=== PATIENT | female | born 1945 | race Caucasian/White ===

== ENCOUNTER 2018-08-30 17:50 | Emergency (ER) | payer OTHER ==
[~2018-08-30] VITALS: Ht 160 cm; Wt 61.7 kg
[2018-08-30] MEDS ORDERED: PLAVIX75 MG PO (18:03)
[2018-08-30] MEDS ORDERED: COREG CR10 MG PO (18:04)
[2018-08-30] MEDS ORDERED: AVAPRO150 MG PO (18:04)
[2018-08-30] MEDS ORDERED: PROTONIX20 MG PO (18:04)
== END 2018-08-30 20:20 | disposition home or self-care (01) ==
LOC: ER 17:50
DX: S60.473A Other superficial bite of left middle finger, initial encounter (principal); W54.0XXA Bitten by dog, initial encounter; Y93.89 Activity, other specified; Y92.488 Other paved roadways as the place of occurrence of the external cause; Y99.8 Other external cause status

== ENCOUNTER 2021-06-30 11:11 | Outpatient (CLI) | payer OTHER ==
[~2021-06-30 11:11] MED LIST: AVAPRO150 MG PO; COREG CR10 MG PO; PLAVIX75 MG PO; PROTONIX20 MG PO
== END 2021-06-30 11:20 | disposition home or self-care (01) ==
LOC: RAD 11:11
PROVIDERS: ATTEND Urology
DX: N39.43 Post-void dribbling (principal)

== ENCOUNTER 2021-12-08 09:27 | Outpatient (CLI) | payer OTHER | END 2021-12-08 09:28 | disposition home or self-care (01) | LOC: RAD 09:27 | PROVIDERS: ATTEND Physical Medicine & Rehabilitation | DX: M25.511 Pain in right shoulder (principal); M25.551 Pain in right hip; M25.561 Pain in right knee ==

== ENCOUNTER 2022-06-25 15:44 | Outpatient (CLI) | payer OTHER | END 2022-06-25 15:53 | disposition home or self-care (01) | LOC: RAD 15:44 | PROVIDERS: ATTEND Podiatrist Foot Surgery | DX: M54.50 Low back pain, unspecified (principal) ==

== ENCOUNTER 2024-03-05 09:55 | Emergency (ER) | payer OTHER ==
[~2024-03-05] VITALS: Ht 160 cm; Wt 59.0 kg
[2024-03-05] MEDS ORDERED: 0.9 % SODIUM CHLORIDE 1,000 ML IV SCH (10:30)
[2024-03-05 11:05] LABS: HEMATOCRIT 38.9 % (36.0-45.00); HEMOGLOBIN 13.2 g/dL (12.0-15.00); MEAN CELL VOLUME 90.2 fL (80.00-100.00); MEAN CORPUSCULAR HEMOGLOBIN 30.5 pg (27.00-32.0); MEAN CORPUSCULAR HGB CONC 33.9 g/dl (32.0-36.0); PLATELET COUNT 227 K/uL (150-450); RED BLOOD COUNT 4.31 M/uL (4.00-6.00); RED CELL DISTRIBUTION WIDTH 13.8 % (11.5-14.5)
[2024-03-05 11:36] LABS: CALCIUM 9.4 mg/dL (8.5-10.1); CREATININE SERUM 0.8 mg/dL (0.55-1.02); GFR 69.01; POTASSIUM 3.73 mEq/L (3.5-5.1)
[2024-03-05 12:31] LABS: PH,URINE 6.5 (5.0-8.0); URINE APPEARANCE Clear; URINE BILIRRUBIN Negative (NEGATIVE); URINE BLOOD Negative; URINE COLOR Yellow; URINE GLUCOSE Negative (NEGATIVE); URINE KETONE Negative (NEGATIVE); URINE LEUKOCYTE Negative; URINE NITRATE Negative; URINE PROTEIN Negative (NEGATIVE); URINE UROBILINOGEN 0.2 E.U./dl
[2024-03-05 12:34] LABS: URINE BACTERIA 584.6 uL (0.0-1933); URINE RBC 13.7 uL (0.0-20.8); URINE WBC 2.4 uL (0.0-23.2)
== END 2024-03-05 13:47 | disposition home or self-care (01) ==
LOC: ER 09:55
PROVIDERS: Emergency Medicine
DX: S00.93XA Contusion of unspecified part of head, initial encounter (principal); W18.39XA Other fall on same level, initial encounter; Y93.89 Activity, other specified; Y92.018 Other place in single-family (private) house as the place of occurrence of the external cause; Y99.9 Unspecified external cause status; R55 Syncope and collapse; I10 Essential (primary) hypertension; Z91.011 Allergy to milk products; Z88.8 Allergy status to other drugs, medicaments and biological substances
CPT/HCPCS: 36415; 70450; 71045; 93005; 96365; 99284; J3490

== ENCOUNTER 2024-07-20 10:11 | Outpatient (CLI) | payer OTHER | END 2024-07-20 10:13 | disposition home or self-care (01) | LOC: RAD 10:11 | PROVIDERS: ATTEND Internal Medicine Rheumatology | DX: M15.8 Other polyosteoarthritis (principal) ==

== ENCOUNTER 2024-08-21 11:18 | Outpatient (CLI) | payer OTHER | END 2024-08-21 11:21 | disposition home or self-care (01) | LOC: RAD 11:18 | PROVIDERS: ATTEND Family Medicine | DX: J02.9 Acute pharyngitis, unspecified (principal) ==

== ENCOUNTER 2024-08-30 10:42 | Inpatient (IN) | payer OTHER ==
[~2024-08-30] VITALS: Ht 160 cm; Wt 59.0 kg
[2024-08-30] MEDS ORDERED: FAMOtidine 10 MG/ML (4ML VIAL) IV ONE (11:30)
[2024-08-30] MEDS ORDERED: LEVALBUTEROL HCL 1.25 MG/3 ML SOLUTION IH ONE (11:30)
[2024-08-30] MEDS ORDERED: BENZONATATE 200 MG CAPSULE PO ONE (11:30)
[2024-08-30] MEDS ORDERED: PIPERACILLIN/TAZOBACTAM SODIUM 3.375 GM VIAL IV ONE ×2 (11:30→12:17)
[2024-08-30 12:01] LABS: ABG PH 7.458 (7.35-7.45); ABG PO2 79.3 mmHg (80-100); ABG pCO2 34.7 mmHg (35-45); BASE EXCESS 0.7 mmol/l; SaO2 96.3 %; Tco2 25.1 mmol/l
[2024-08-30] MEDS ORDERED: FAMOTIDINE/PF 20 MG/2 ML VIAL ONE (12:17)
[2024-08-30 12:47] LABS: allen test SATISFACTORY; mode ROOM AIR; o2 21 %; puncture site RADIAL LEFT
[2024-08-30 12:55] LABS: HEMATOCRIT 38.6 % (36.0-45.00); HEMOGLOBIN 13.5 g/dL (12.0-15.00); MEAN CELL VOLUME 88.2 fL (80.00-100.00); MEAN CORPUSCULAR HGB CONC 35.1 g/dl (32.0-36.0); PLATELET COUNT 256 K/uL (150-450); RED BLOOD COUNT 4.37 M/uL (4.00-6.00); RED CELL DISTRIBUTION WIDTH 13.9 % (11.5-14.5)
[2024-08-30 13:15] LABS: COVID-19 AG NEGATIVE (NEGATIVE)
[2024-08-30 13:16] LABS: INFLUENZA A AG NEGATIVE (NEGATIVE)
[2024-08-30 14:13] LABS: INR 1.04; PARTIAL THROMBOPLASTIN TIME 29.5 SECONDS (22.0-34.0); PROTHROMBIN TIME 11.3 SECONDS (9.0-11.5)
[2024-08-30 14:19] LABS: ALBUMIN 3.2 gm/dL (3.4-5.0); BILIRUBIN TOTAL 1.81 mg/dL (0.3-1.2); CALCIUM 8.2 mg/dL (8.5-10.1); CREATININE SERUM 0.55 mg/dL (0.55-1.02); GFR 106.35; GLOBULINA 3.8 G/DL (2.4-3.5); POTASSIUM 3.77 mEq/L (3.5-5.1)
[2024-08-30 15:04] LABS: URINE APPEARANCE Cloudy; URINE BILIRRUBIN Negative (NEGATIVE); URINE BLOOD Negative; URINE COLOR Yellow; URINE KETONE Trace (NEGATIVE); URINE LEUKOCYTE Negative; URINE NITRATE Negative; URINE PROTEIN Trace (NEGATIVE); URINE UROBILINOGEN 0.2 E.U./dl
[2024-08-30 15:07] LABS: URINE EPITHELIAL CELLS 132.9 uL (0.0-38.8); URINE RBC 45.5 uL (0.0-20.8); URINE WBC 15.5 uL (0.0-23.2)
[2024-08-30 15:23] LABS: URINE GLUCOSE 500 MG/DL (NEGATIVE)
[2024-08-30] MEDS ORDERED: 0.9 % SODIUM CHLORIDE 1,000 ML IV ONE (16:00)
[2024-08-30] MEDS ORDERED: KETOROLAC TROMETHAMINE 30 MG VIAL IV ONE (16:15)
[2024-08-30] MEDS ORDERED: KETOROLAC TROMETHAMINE 30 MG VIAL ONE (16:22)
[2024-08-30] MEDS ORDERED: FUROsemide 20 MG/2 ML VIAL IV SCH (21:27)
[2024-08-30] MEDS ORDERED: ASPIRIN 81 MG TABLET.EC PO SCH (21:28)
[2024-08-30] MEDS ORDERED: CLOPIDOGREL BISULFATE 75 MG TABLET PO SCH (21:28)
[2024-08-30] MEDS ORDERED: NITROGLYCERIN IN 5 % DEXTROSE 250 ML IV SCH (21:30)
[2024-08-30] MEDS ORDERED: PANTOPRAZOLE SODIUM 40 MG in 0.9 % SODIUM CHLORIDE 8 ML IV PUSH SCH (22:00)
[2024-08-31] VITALS (7 sets, daily range): BP systolic 122–164; BP diastolic 65–79; O2SAT 92–98
[2024-08-31 02:02] LABS: ALBUMIN 3.2 gm/dL (3.4-5.0); BILIRUBIN TOTAL 1.51 mg/dL (0.3-1.2); CALCIUM 8.3 mg/dL (8.5-10.1); CREATININE SERUM 0.51 mg/dL (0.55-1.02); GFR 116.03; GLOBULINA 3.3 G/DL (2.4-3.5); POTASSIUM 4.03 mEq/L (3.5-5.1); TOTAL PROTEIN 6.5 gm/dL (6.4-8.2)
[2024-08-31] MEDS ORDERED: NITROGLYCERIN IN 5 % DEXTROSE 50 MG/250 ML BOTTLE IV ONE (02:34)
[2024-08-31] MEDS ORDERED: NITROGLYCERIN IN 5 % DEXTROSE 250 ML IV SCH (06:45)
[2024-08-31] MEDS ORDERED: CEFTRIAXONE SODIUM 2,000 MG in 0.9 % SODIUM CHLORIDE 100 ML IV SCH (15:30)
[2024-08-31] MEDS ORDERED: ACETAMINOPHEN 500 MG GEL..CAP PO PRN (15:45)
[2024-08-31] MEDS ORDERED: AZITHROMYCIN 500 MG VIAL IV ONE ×2 (16:19→18:23)
[2024-08-31] MEDS ORDERED: BENZONATATE 200 MG CAPSULE PO SCH (17:00)
[2024-08-31] MEDS ORDERED: IPRATROPIUM BROMIDE 0.5 MG/2.5 ML AMPUL.NEB IH SCH (17:00)
[2024-08-31] MEDS ORDERED: AZITHROMYCIN 500 MG VIAL IV SCH (17:00)
[2024-08-31] MEDS ORDERED: 0.9 % SODIUM CHLORIDE 1,000 ML IV SCH (20:00)
[2024-09-01] VITALS (9 sets, daily range): BP systolic 129–142; BP diastolic 76–79; O2SAT 91–98
[2024-09-01] MEDS ORDERED: IRBESARTAN 75 MG TABLET PO SCH (09:00)
[2024-09-01] MEDS ORDERED: PANTOPRAZOLE SODIUM 40 MG/VIAL VIAL IV PUSH SCH (09:00)
[2024-09-01] MEDS ORDERED: IRBESARTAN 150 MG TABLET PO NR (11:00)
[2024-09-01 13:50] LABS: HEMATOCRIT 41.3 % (36.0-45.00); HEMOGLOBIN 14.3 g/dL (12.0-15.00); MEAN CELL VOLUME 88.3 fL (80.00-100.00); MEAN CORPUSCULAR HEMOGLOBIN 30.6 pg (27.00-32.0); MEAN CORPUSCULAR HGB CONC 34.7 g/dl (32.0-36.0); PLATELET COUNT 270 K/uL (150-450); RED BLOOD COUNT 4.67 M/uL (4.00-6.00); RED CELL DISTRIBUTION WIDTH 13.3 % (11.5-14.5)
[2024-09-01 14:26] LABS: CALCIUM 8.5 mg/dL (8.5-10.1); CREATININE SERUM 0.55 mg/dL (0.55-1.02); GFR 106.35; POTASSIUM 3.7 mEq/L (3.5-5.1)
[2024-09-01] MEDS ORDERED: AZITHROMYCIN 500 MG VIAL IV ONE (15:50)
[2024-09-02] VITALS (8 sets, daily range): BP systolic 136–151; BP diastolic 69–84; O2SAT 90–97
[2024-09-02] MEDS ORDERED: IRBESARTAN 150 MG TABLET PO SCH (09:00)
[2024-09-02] MEDS ORDERED: CEFEPIME HCL 2,000 MG VIAL IV SCH (13:00)
[2024-09-02] MEDS ORDERED: LACTULOSE 10 G/15 ML ML PO ONE (13:45)
[2024-09-02] MEDS ORDERED: MAGNESIUM HYDROXIDE 30 ML BLIST.PACK PO NR (13:50)
[2024-09-02] MEDS ORDERED: MINERAL OIL 30 ML BLIST.PACK PO NR (13:50)
[2024-09-02] MEDS ORDERED: AZITHROMYCIN 500 MG VIAL IV ONE (15:48)
[2024-09-02] MEDS ORDERED: LEVALBUTEROL HCL 0.63 MG/3 ML SOLUTION IH SCH (19:55)
[2024-09-03] VITALS (11 sets, daily range): BP systolic 120–153; BP diastolic 68–76; O2SAT 90–97
[2024-09-03] MEDS ORDERED: AZITHROMYCIN 500 MG VIAL IV ONE (15:18)
[2024-09-04 01:07] VITALS: BP 138/74; O2SAT 95
[2024-09-04 05:14] VITALS: O2SAT 91
[2024-09-04 08:08] VITALS: O2SAT 95
[2024-09-04 08:26] VITALS: BP 158/65; O2SAT 99
[2024-09-04 17:35] VITALS: BP 120/72; O2SAT 97
[2024-09-04 22:24] VITALS: BP 138/85; O2SAT 97
[2024-09-05 02:00] VITALS: BP 105/75; O2SAT 98
[2024-09-05 09:46] VITALS: BP 137/69; O2SAT 99
[2024-09-05 17:38] VITALS: BP 144/74; O2SAT 97
[2024-09-06 03:41] VITALS: BP 110/68; O2SAT 94
[2024-09-06 09:06] VITALS: BP 137/66; O2SAT 97
[2024-09-06 17:44] VITALS: BP 146/65; O2SAT 95
[2024-09-07 03:34] VITALS: BP 114/62; O2SAT 93
[2024-09-07 09:20] LABS: ABG PH 7.447 (7.35-7.45); ABG PO2 83.6 mmHg (80-100); ABG pCO2 38.5 mmHg (35-45); BASE EXCESS 2.1 mmol/l; SaO2 96.8 %; Tco2 27.2 mmol/l
[2024-09-07 09:25] LABS: allen test SATISFACTORY; mode ROOM AIR; puncture site RADIAL LEFT
[2024-09-07 09:26] LABS: o2 21 %
[2024-09-07 10:03] VITALS: BP 129/66; O2SAT 94
[2024-09-07 11:09] LABS: HEMATOCRIT 40.2 % (36.0-45.00); HEMOGLOBIN 13.5 g/dL (12.0-15.00); MEAN CELL VOLUME 90.8 fL (80.00-100.00); MEAN CORPUSCULAR HEMOGLOBIN 30.5 pg (27.00-32.0); MEAN CORPUSCULAR HGB CONC 33.6 g/dl (32.0-36.0); PLATELET COUNT 284 K/uL (150-450); RED BLOOD COUNT 4.42 M/uL (4.00-6.00); RED CELL DISTRIBUTION WIDTH 13.4 % (11.5-14.5)
[2024-09-07 11:46] LABS: ALBUMIN 3.1 gm/dL (3.4-5.0); BILIRUBIN TOTAL 1.62 mg/dL (0.3-1.2); CALCIUM 9.5 mg/dL (8.5-10.1); CREATININE SERUM 0.78 mg/dL (0.55-1.02); GFR 71.06; GLOBULINA 3.8 G/DL (2.4-3.5); POTASSIUM 3.89 mEq/L (3.5-5.1); TOTAL PROTEIN 6.9 gm/dL (6.4-8.2)
== END 2024-09-07 16:45 | disposition home or self-care (01) | DRG 194 ==
LOC: ER 10:42 → MEDJ 22:54
PROVIDERS: General Practice; Internal Medicine; ADMIT Student in an Organized Health Care Education/Training Program; ATTEND Student in an Organized Health Care Education/Training Program
PROC: BB24ZZZ Computerized Tomography (CT Scan) of Bilateral Lungs (ICD-10-PCS; principal; 2024-08-30)
PROC: B246ZZZ Ultrasonography of Right and Left Heart (ICD-10-PCS; 2024-08-30)
PROC: 4A12X4Z Monitoring of Cardiac Electrical Activity, External Approach (ICD-10-PCS; 2024-08-31)
PROC: 3E0F7GC Introduction of Other Therapeutic Substance into Respiratory Tract, Via Natural or Artificial Opening (ICD-10-PCS; 2024-08-31)
DX: J18.1 Lobar pneumonia, unspecified organism (principal); E87.1 Hypo-osmolality and hyponatremia; J98.11 Atelectasis; I11.9 Hypertensive heart disease without heart failure; D72.829 Elevated white blood cell count, unspecified; Z95.818 Presence of other cardiac implants and grafts

== ENCOUNTER 2024-12-31 09:17 | Outpatient (CLI) | payer OTHER | END 2024-12-31 09:18 | disposition home or self-care (01) | LOC: TOM 09:17 | PROVIDERS: ATTEND Internal Medicine Pulmonary Disease | DX: M81.0 Age-related osteoporosis without current pathological fracture (principal); M54.59 Other low back pain; M47.814 Spondylosis without myelopathy or radiculopathy, thoracic region; M15.8 Other polyosteoarthritis; M47.817 Spondylosis without myelopathy or radiculopathy, lumbosacral region ==